=== PATIENT | male | born 1935 | race Caucasian/White ===

== ENCOUNTER 2019-05-29 20:21 | Observation (INO) | payer MEDICARE ==
[2019-05-29 22:10] LABS: Troponin I Less than 0.010 ng/mL (< 0.028)
[2019-05-29] MEDS ORDERED: Acetaminophen 325 MG TAB PO PRN (23:14)
[2019-05-29] MEDS ORDERED: Acetaminophen 650 MG Suppository PR PRN (23:14)
[2019-05-29] MEDS ORDERED: Ondansetron PF 4 MG/2 ML Vial IVP PRN (23:14)
[2019-05-29] MEDS ORDERED: Ondansetron ODT 4 MG TAB PO PRN (23:14)
[2019-05-29 23:22] VITALS: BMI 30.4
[2019-05-29] MEDS ORDERED: Sodium Chloride 0.9% 1,000 ML IV SCH (23:59)
[2019-05-30] MEDS ORDERED: Atorvastatin Calcium 40 MG TAB PO SCH ×2 (00:15→21:00)
[2019-05-30] MEDS ORDERED: Tamsulosin HCl 0.4 MG CAP PO SCH ×2 (00:15→21:00)
[2019-05-30 01:01] LABS: Troponin I Less than 0.010 ng/mL (< 0.028)
--- NOTE | 2019-05-30 02:03 | HP ---
PRIMARY CARE DOCTOR: Dr. Marcos Mcmahon. CODE STATUS: Full code. TIME OF EVALUATION: 10:35 p.m. CHIEF COMPLAINT: Chest pain. HISTORY OF PRESENT ILLNESS: An 83-year-old male patient who was transferred from [place], came to the hospital after having chest pain that was in the right side of the chest, radiated to the neck and shoulder. The pain improved with treatment given here, lasted for a couple of hours. It seems that it was related to exertion and was improving with rest. The patient follows with Dr. Guerrero for problems in the "heart" but not clear exactly why. No recent stress test. Last consult with Dr. Guerrero was in October and no further workup was done at that point. He goes to follow up in a year because everything was good. Symptoms were reported as mild. REVIEW OF SYSTEMS: CONSTITUTIONAL: No fever, chills, or generalized weakness. RESPIRATORY: No cough, sputum production, or shortness of breath. CARDIOVASCULAR: The patient has chest pain. No palpitation. GASTROINTESTINAL: No nausea, vomiting, diarrhea, or abdominal pain. MANAGER RESEARCH DEVELOPMENT: No dizziness, headache, or feeling lightheaded. GENITOURINARY: No burning urination. EXTREMITIES: No leg swelling. All other systems were reviewed and negative except for the findings mentioned above. PAST MEDICAL HISTORY: The patient has a history of being born with only one kidney, coronary artery disease, hypothyroidism, BPH, hyperlipidemia, hypertension, abdominal aortic aneurysm in 2013. PAST SURGICAL HISTORY: AAA repair, bilateral cataract, bilateral eyelid lift. Surgical history of hernia repair. Surgical history of orthopedic surgery, left rotator cuff surgery. PSYCHIATRIC HISTORY: No previous psych history. No history of suicidal ideations. SOCIAL HISTORY: The patient drinks socially every week. The patient is a former tobacco user. Smokes cigarettes. The patient quit smoking more than 10 years ago. Lives at home with family. FAMILY HISTORY: Reviewed. Noncontributory for current presentation. KNOWN ALLERGIES: No known drug allergies. REPORTED MEDICATIONS: 1. Levothyroxine. 2. Avodart. 3. Tamsulosin. 4. Benicar. 5. Isosorbide. 6. Atorvastatin. 7. Vitamin D3. 8. Ferrous gluconate. 9. B complex. PHYSICAL EXAMINATION: VITAL SIGNS: On presentation, blood pressure 130/68, heart rate 96, respiratory rate 20, temperature 98.1. Pain was 0/10. Oxygen saturation 94% on room air. GENERAL: The patient is alert, oriented, in no acute distress. HEENT: Eyes, normal conjunctivae. Moist oral mucosa. Anicteric. No JVD. RESPIRATORY: Bilateral air entry. No rales. No wheezes. Symmetric expansion. CARDIAC: Normal rate, regular rhythm. No murmurs. No gallop. No edema. ABDOMEN: Soft. Normal bowel sounds. MUSCULOSKELETAL: Baseline range of motion and strength. SKIN: Warm, intact. No pallor. No rash. No redness. Capillary refill seems to be intact. NEUROLOGICAL: No evidence of any new focal weakness. Cranial nerves seem to be intact. PSYCH: The patient is in good mood. No anxiety. Optimal judgment. DIAGNOSTIC STUDIES: EKG was reviewed. The patient has sinus rhythm with first-degree AV block, RBBB, ventricular rate 82, PT 276, QRS 124, QT corrected 427. LABORATORY DATA: Reviewed. The patient has white count 10.2, hemoglobin 15.3, MCV 92.9, platelet count 217. Coagulation, D-dimer 1.5. Chemistry; sodium 137, potassium 4.3, chloride 103, carbon dioxide 22, anion gap 16, BUN 28, GFR 46 with creatinine 1.47, the previous creatinine was 1.0, glucose 100, uric acid 6.1, calcium 11.1, total bilirubin 0.9, AST 26, ALT 31, alkaline phosphatase 57. Troponin less than 0.010. Beta-natriuretic peptide 12.8. Serum total protein 7.3, albumin 4.5, globulin 2.8, albumin globulin ratio is 1.6. ASSESSMENT AND PLAN: The patient will be placed in the hospital with following medical problems: 1. Chest pain, rule out acute coronary syndrome. The patient has chest pain earlier today that was severe on presentation. The patient follows with Dr. Guerrero and no recent stress test has been done. We will place the patient in observation, do troponins, order a stress test in the morning. If positive, we will call Dr. Guerrero for evaluation. 2. Hypothyroidism. Continue hormone replacement. 3. BPH, reconcile home medications. 4. Hyperlipidemia. Low-cholesterol diet is advised. Reconcile home medications. 5. Controlled hypertension, reconcile home medications. Adjust as needed. 6. Deep vein thrombosis prophylaxis. Job ID: [id number]
[2019-05-30 07:13] LABS: #Lymphocytes 0.6 thou/uL (1.20-3.40); #Monocytes 0.3 thou/uL (0.11-0.59); #Neutrophils 5.2 thou/uL (1.40-6.50); %Basophils 0.3 % (0.0-1.0); %Eosinophils 0.6 % (0.0-10.0); %Lymphocytes 9.7 % (21.0-51.0); %Monocytes 4.9 % (0.0-10.0); %Neutrophils 84.5 % (42.0-75.0); Hemoglobin 13.6 g/dL (14.0-18.0); Mean Corpuscular HGB CONC 32.3 g/dL (32.0-36.0); Mean Corpuscular Hemoglobin 31.7 pg (27.0-31.0); Mean Platelet Volume 7.1 fL (7.4-10.4); Platelet Count 179 thou/uL (130-400); RBC Distribution Width 12.8 % (11.5-14.5); Red Blood Cell (RBC) Count 4.29 mill/uL (4.70-6.10); White Blood Cell (WBC) Count 6.2 thou/uL (4.8-10.8)
[2019-05-30 07:31] LABS: Anion Gap 10 mmol/L (10-20); BUN (Urea Nitrogen) 22 mg/dL (8.4-25.7); Calc. Creatinine Clearance 82 mL/min (70-130); Calcium 9.6 mg/dL (7.8-10.44); Carbon Dioxide 23 mmol/L (23-31); Chloride 108 mmol/L (98-107); Estimated GFR-MDRD 77; Glucose 91 mg/dL (83-110); Potassium 4.3 mmol/L (3.5-5.1); Sodium 137 mmol/L (136-145)
[2019-05-30] MEDS ORDERED: Dutasteride 0.5 MG CAP PO SCH (09:00)
[2019-05-30] MEDS ORDERED: Levothyroxine Sodium 75 MCG TAB PO SCH (09:00)
[2019-05-30 09:07] VITALS: TEMP 97.6
[2019-05-30 13:25] VITALS: BP 105/68
--- NOTE | 2019-05-30 14:01 | NM ---
NM Cardiac Stress W EF WF HISTORY: Chest pain. COMPARISON: None. FINDINGS: Examination is performed using 30.6 mCi 90 9M technetium sestamibi on the stress and 10.5 m Ci on the resting images. This shows a tiny apical defect which is fixed most compatible with a tiny area of scar. Wall motion: There is symmetric contractility of the ventricle. Left ventricular ejection fraction: The calculated left ventricular ejection fraction was 74 IMPRESSION: No evidence of ischemia.
== END 2019-05-30 15:23 | disposition home or self-care (01) ==
LOC: ERS 20:21 → 2SW 21:26
PROVIDERS: ADMIT Hospitalist; ATTEND Hospitalist
DX: R07.9 Chest pain, unspecified (principal); E03.9 Hypothyroidism, unspecified; N40.0 Benign prostatic hyperplasia without lower urinary tract symptoms; E78.5 Hyperlipidemia, unspecified; I10 Essential (primary) hypertension; I25.10 Atherosclerotic heart disease of native coronary artery without angina pectoris; Q60.0 Renal agenesis, unilateral; I44.0 Atrioventricular block, first degree; Z87.891 Personal history of nicotine dependence; Z79.82 Long term (current) use of aspirin; Z79.899 Other long term (current) drug therapy
CPT/HCPCS: 78452; 80048; 84484 ×2; 85025; 93005; 93017; 96360; 96361; 99285; A9500; G0378 ×3; 36415

== ENCOUNTER 2020-09-23 13:25 | Inpatient (IN) | payer MEDICARE ==
[2020-09-23 15:56] LABS: Troponin I Less than 0.010 ng/mL (< 0.028)
--- NOTE | 2020-09-23 17:00 | HP ---
PRIMARY CARE PHYSICIAN: Moriah. CHIEF COMPLAINT: Chest tightness and dyspnea on exertion. HISTORY OF PRESENT ILLNESS: This is an 85-year-old white male with a history of previous angina and negative stress tests, followed by Dr. Guerrero. He woke up this morning and found himself to be short of breath with central chest tightness. The patient reports that he got very dyspneic on exertion when he walked to the bathroom. This did not improve over the course of the morning and so he went into the emergency room in [place]. There, he was found to have normal vital signs, but an elevated D-dimer. He had a CT angio of the chest, which showed no evidence of pulmonary embolism, just some mild early emphysematous changes. The patient did get a little bit of flushing and diaphoresis after the CT scan, but that quickly resolved. Also, he is about to transfer here, his eyes became bilaterally bloodshot without any itching, burning, or vision changes. He was then transferred here for further evaluation. REVIEW OF SYSTEMS: CONSTITUTIONAL: No fevers. No chills. EYES: No double vision or blurred vision. Redness as per HPI. ENT: No drainage or sore throat. He does have some chronic sinus congestion from allergies. CARDIOVASCULAR: No true chest pain just the central chest pressure. No palpitations or racing heart. PULMONARY: No coughing or wheezing. The shortness of breath and dyspnea on exertion as per HPI. GASTROINTESTINAL: No abdominal pain. No nausea or vomiting. No diarrhea or constipation. GENITOURINARY: No dysuria or hematuria. MUSCULOSKELETAL: Some chronic arthritis pains, but no new musculoskeletal complaints. SKIN: No rashes or other lesions noted. NEUROLOGIC: No numbness, tingling, or focal weakness. PAST MEDICAL HISTORY: 1. Hypertension. 2. Abdominal aortic aneurysm, repaired. 3. Hyperlipidemia. 4. Benign prostatic hyperplasia. 5. Hypothyroidism. 6. Intermittent angina without any known coronary artery disease. 7. Congenital single kidney. PAST SURGICAL HISTORY: 1. Abdominal aortic aneurysm repair [place] [address] Becerra. 2. Bilateral cataract removal. 3. Bilateral eyelid lift surgery. 4. Hernia repair. 5. Left rotator cuff surgery. SOCIAL HISTORY: The patient is a former smoker, quit more than 10 years ago. Drinks socially every week. No illicit drug use. He is and lives at home with his , who would be his medical decision maker, her name is Marily Vivas. He is a full code. FAMILY HISTORY: He has a brother, who has had prostate cancer and a stroke. ALLERGIES: NO KNOWN DRUG ALLERGIES. CURRENT MEDICATIONS: 1. Levothyroxine 75 mcg daily. 2. Tamsulosin 0.4 mg daily. 3. Isosorbide mononitrate 30 mg daily. 4. Atorvastatin 80 mg daily. 5. Vitamin D3 of 1000 units daily. 6. Vitamin B complex one tablet daily. 7. Aspirin 81 mg daily. PHYSICAL EXAMINATION: VITAL SIGNS: Blood pressure 167/98, pulse 59, respirations 15, temperature 98.1, and O2 saturation 96% on room air. GENERAL: This is a well-developed obese white male, in no acute distress. HEENT: Pupils are equal, round, and reactive to light. He does have bilateral conjunctival redness without any evidence of drainage or swelling. Oropharynx clear without lesions, erythema, or exudate. NECK: Supple. No lymphadenopathy. No thyroid nodules or enlargement. No JVD. HEART: Regular rate and rhythm. No murmurs, rubs, or gallops. LUNGS: Clear to auscultation bilaterally. No wheezes, crackles, or rhonchi. ABDOMEN: Soft and nontender to palpation. Normoactive bowel sounds. No hepatosplenomegaly or other masses. EXTREMITIES: No clubbing, cyanosis, or edema. SKIN: No rashes or lesions noted. NEUROLOGIC: The patient moves all extremities equally. No facial droop. PSYCHIATRIC: Alert and oriented x3. Normal mood and affect. LABORATORY DATA: CBC grossly within normal limits. Coagulation profile with an elevated D-dimer. The rest is normal. Complete metabolic panel is notable for carbon dioxide of 19 and glucose of 111, the rest was normal. Brain natriuretic peptide was negative. Troponin was negative x2 thus far. Lactic acid was negative. I did review the chest x-ray done in the emergency room along with the radiologist's report, does show normal cardiac silhouette and clear lung rae. No acute cardiopulmonary process. CTA of the chest done in [place] [facility] shows no central or segmental pulmonary embolism. There are scattered emphysema changes. EKG done in the emergency room shows normal sinus rhythm at 72 beats per minute with a first-degree AV block and a complete right bundle branch block that appears similar to an EKG done from last year. ASSESSMENT AND PLAN: 1. New onset chest tightness with dyspnea on exertion. The patient does have a history of angina with negative stress test in the past. Does not have one in the last year. We will go ahead and set him up for stress test in the morning. We will continue him on aspirin and statin for now and we will give nitroglycerin should he have any worsening of symptoms. Should he get more significantly short of breath at rest, then we will try an inhaler as well to see if perhaps this is coming from his lungs. He does have some emphysema changes on his CT. 2. Bilateral conjunctivitis. Red eyes but asymptomatic. Happened in the ER. Possibly environmental but patient may be developing a viral infection. Covid-19 test is pending. 3. Hypertension. Resume the patient's home medications and p.r.n. blood pressure medicines then. 4. Gastrointestinal prophylaxis, put the patient on Pepcid twice a day. 5. Deep venous thrombosis prophylaxis, put the patient on Lovenox while he is in the hospital. 6. Code status, the patient is a full code. Should he be incapacitated, his would be his medical decision maker. Job ID: [id number] [facility]
[2020-09-23 18:05] LABS: Troponin I Less than 0.010 ng/mL (< 0.028)
[2020-09-23 18:14] VITALS: BMI 30.2
[2020-09-23] MEDS ORDERED: Acetaminophen 650 MG Suppository PR PRN (18:46)
[2020-09-23] MEDS ORDERED: Nitroglycerin 0.4 MG TAB (25 Tab Bottle) SL PRN (18:46)
[2020-09-23] MEDS ORDERED: Ondansetron PF 4 MG/2 ML Vial IVP PRN (18:46)
[2020-09-23] MEDS ORDERED: Guaifenesin DM 100-10/5 ML UDCUP PO PRN (18:46)
[2020-09-23] MEDS ORDERED: Ondansetron ODT 4 MG TAB PO PRN (18:46)
[2020-09-23] MEDS ORDERED: Senokot S 8.6-50 MG TAB PO PRN (18:46)
[2020-09-23 20:13] LABS: SARS-CoV-2 NAA Rapid Test Not Detected (NotDetected)
[2020-09-23] MEDS: Acetaminophen 325 MG TAB PO PRN (20:16)
[2020-09-23] MEDS: Famotidine 20 MG TAB PO SCH (20:17)
[2020-09-23] MEDS: Tamsulosin HCl 0.4 MG CAP PO SCH (20:17)
[2020-09-23] MEDS: Atorvastatin Calcium 40 MG TAB PO SCH (20:17)
[2020-09-23] MEDS: Cholecalciferol 1,000 UNITS (25 MCG) TAB PO SCH (20:17)
[2020-09-23] MEDS: Aspirin 81 mg Enteric Coated Tablet PO SCH (20:17)
[2020-09-23 21:10] LABS: Troponin I Less than 0.010 ng/mL (< 0.028)
[2020-09-24 04:26] LABS: #Lymphocytes 2.1 thou/uL (1.20-3.40); #Monocytes 0.5 thou/uL (0.11-0.59); #Neutrophils 2.8 thou/uL (1.40-6.50); %Basophils 0.8 % (0.0-1.0); %Eosinophils 0.8 % (0.0-10.0); %Lymphocytes 37.8 % (21.0-51.0); %Monocytes 9.7 % (0.0-10.0); Mean Corpuscular HGB CONC 33.9 g/dL (32.0-36.0); Mean Corpuscular Hemoglobin 32.4 pg (27.0-31.0); Mean Corpuscular Volume 95.8 fL (78.0-98.0); Mean Platelet Volume 7.4 fL (7.4-10.4); Platelet Count 201 thou/uL (130-400); RBC Distribution Width 12.5 % (11.5-14.5); Red Blood Cell (RBC) Count 4.32 mill/uL (4.70-6.10); White Blood Cell (WBC) Count 5.4 thou/uL (4.8-10.8)
[2020-09-24 04:49] LABS: Anion Gap 12 mmol/L (10-20); BUN (Urea Nitrogen) 20 mg/dL (8.4-25.7); Calc. Creatinine Clearance 67 mL/min (70-130); Calcium 9.9 mg/dL (7.8-10.44); Carbon Dioxide 22 mmol/L (23-31); Cardiac Risk 2.7 (Less than 4.5); Chloride 109 mmol/L (98-107); Cholesterol 123 mg/dl (< 200 Desired); Estimated GFR-MDRD 67; Glucose 124 mg/dL (83-110); HDL Cholesterol 45 mg/dL (>60 Neg Risk); LDL Cholesterol, Calculated 58 mg/dL; Potassium 3.7 mmol/L (3.5-5.1); Sodium 139 mmol/L (136-145); Triglycerides 102 mg/dL (Less than 150)
[2020-09-24] MEDS: Levothyroxine Sodium 75 MCG TAB PO SCH (05:18)
[2020-09-24] MEDS: Acetaminophen 325 MG TAB PO PRN ×2 (05:22→11:54)
[2020-09-24] MEDS: Famotidine 20 MG TAB PO SCH ×2 (11:48→22:32)
[2020-09-24] MEDS: Stress 600 With Zinc 1 TAB PO SCH (11:48)
[2020-09-24] MEDS: Dutasteride 0.5 MG CAP PO SCH (11:48)
[2020-09-24] MEDS: Enoxaparin Sodium 40 MG/0.4 ML SYRINGE SC SCH (11:49)
--- NOTE | 2020-09-24 11:57 | NM ---
NUCLEAR MEDICINE CARDIAC STRESS AND EF WITH WALL MOTION: HISTORY: Shortness of breath. Chest tightness and dyspnea on exertion. COMPARISON: 05/30/2019 TECHNIQUE: Patient was administered 9 mCi of technetium 99 sestamibi for rest imaging and 27 mCi of t echnetium 99 M sestamibi for stress imaging. Cardiac gating is performed FINDINGS: Homogeneous distribution of the radiotracer in the left ventricle on the attenuated non attenuated st ress images. TID is 1.07 End-diastolic volume is 121 mL End-systolic volume is 44 mL Cardiac gating: Normal wall motion and thickening. 64% ejection fraction. IMPRESSION: 1. No reversibility or fixed defect 2. 64% ejection fraction. Transcribed Date/Time: 09/24/2020 1:35 PM
[2020-09-24] MEDS ORDERED: Regadenoson 0.4 MG/5 ML SYRINGE ONE (14:12)
--- NOTE | 2020-09-24 15:59 | PDOC.HOSPP ---
- Subjective Encounter Date: 09/24/20 Encounter Time: 03:20 Subjective: Patient came back from stress test he took a nap. His stress test is negative. When I ready to discharge him he has lots and lots of questions. I spent over 20 minutes in his room. Bilateral conjunctivitis seems to be resolving. It is not overtly erythematic. Patient has no ocular symptoms including pain discharge or vision acuity. He is not aware of any allergic reaction in the past. He also wants to know why he got shortness of breath this morning he wants to know why his blood pressure went up usually his blood pressure is systolic 120 range. Few readings before this morning is systolic is in the 150 range he is satting 94% in the room air. Covid test negative. - Objective Vital Signs & Weight: Vital Signs (12 hours) Temp Pulse Resp BP Pulse Ox 09/24/20 11:45 97.2 F L 58 L 18 167/83 H 94 L 09/24/20 08:00 97.8 F 59 L 17 142/88 H 92 L Weight Weight 202 lb 12.8 oz I&O: 09/23/20 09/24/20 09/25/20 06:59 06:59 06:59 Intake Total 400 Output Total 1250 Balance -850 Result Diagrams: 09/24/20 04:10 09/24/20 04:10 Hospitalist ROS - Medication Medications: Active Medications Generic Name Dose Route Start Last Admin Trade Name Freq PRN Reason Stop Dose Admin Acetaminophen 650 mg 09/23/20 18:46 09/24/20 11:54 Acetaminophen 325 Mg Tab PO 650 mg Q4H PRN Administration Headache/Fever/Mild Pain (1-3) Aspirin 81 mg 09/23/20 21:00 09/23/20 20:17 Aspirin 81 Mg Enteric Coated Tablet PO 81 mg HS RAMIRO Administration Atorvastatin Calcium 80 mg 09/23/20 21:00 09/23/20 20:17 Atorvastatin Calcium 40 Mg Tab PO 80 mg HS RAMIRO Administration Cholecalciferol 2,000 units 09/23/20 21:00 09/23/20 20:17 Cholecalciferol 1,000 Units (25 Mcg) Tab PO 2,000 units HS RAMIRO Administration Dutasteride 0.5 mg 09/24/20 09:00 09/24/20 11:48 Dutasteride 0.5 Mg Cap PO 0.5 mg DAILY RAMIRO Administration Enoxaparin Sodium 40 mg 09/24/20 09:00 09/24/20 11:49 Enoxaparin Sodium 40 Mg/0.4 Ml Syringe SC 40 mg 0900 RAMIRO Administration Famotidine 20 mg 09/23/20 21:00 09/24/20 11:48 Famotidine 20 Mg Tab PO 20 mg BID RAMIRO Administration Guaifenesin/Dextromethorphan 15 ml 09/23/20 18:46 09/23/20 20:15 Guaifenesin Dm 100-10/5 Ml Udcup PO 15 ml Q4H PRN Administration Cough Isosorbide Mononitrate 30 mg 09/24/20 09:00 09/24/20 11:48 Isosorbide Mononitrate Er 30 Mg Tab PO 30 mg DAILY RAMIRO Administration Levothyroxine Sodium 75 mcg 09/24/20 06:00 09/24/20 05:18 Levothyroxine Sodium 75 Mcg Tab PO 75 mcg 0600 RAMIRO Administration Multivitamins/Zinc 1 tab 09/24/20 09:00 09/24/20 11:48 Stress 600 With Zinc 1 Tab PO 1 tab DAILY RAMIRO Administration Tamsulosin HCl 0.4 mg 09/23/20 21:00 09/23/20 20:17 Tamsulosin Hcl 0.4 Mg Cap PO 0.4 mg HS RAMIRO Administration - Exam General Appearance: NAD, awake alert Eye: PERRL ENT: normocephalic atraumatic Neck: supple Heart: RRR Respiratory: CTAB, normal chest expansion Gastrointestinal: soft, normal bowel sounds Neurological: no focal deficits Psychiatric: A&O x 3 Hosp A/P - Plan Chest pain noncardiac -Acute coronary syndrome ruled out with serial troponins Stress test negative no reversibility or fixed defect 64% in the ejection fraction Echo pending -He followed with Dr. Guerrero in the past, per pt. Shortness of breath prior to admission Wide differentials -He appears well clinically. -Satting in the 94% in the room air. -We will get chest x-ray and a flu test -Covid negative - Bilateral conjunctivitis -Very likely allergic reaction a Patient has no ocular symptoms including pain discharge or vision acuity.
[2020-09-24] MEDS ORDERED: Metoprolol Tartrate 5 MG/5 ML VIAL IVP PRN (16:16)
--- NOTE | 2020-09-24 17:26 | RAD ---
EXAM: Single view of the chest HISTORY: Hypoxia on room air COMPARISON: 09/23/2020 FINDINGS: Single view of the chest shows a normal sized cardiomediastinal silhouette. There are quest ionable multifocal peripheral airspace opacities in the right lung. Degenerative changes are seen in the spine. IMPRESSION: Possible early right-sided pulmonary infiltrates.
[2020-09-24] MEDS: Atorvastatin Calcium 40 MG TAB PO SCH (22:31)
[2020-09-24] MEDS: Cholecalciferol 1,000 UNITS (25 MCG) TAB PO SCH (22:32)
[2020-09-24] MEDS: Aspirin 81 mg Enteric Coated Tablet PO SCH (22:32)
[2020-09-24] MEDS: Tamsulosin HCl 0.4 MG CAP PO SCH (22:33)
[2020-09-25] MEDS: Levothyroxine Sodium 75 MCG TAB PO SCH (06:10)
[2020-09-25] MEDS: Famotidine 20 MG TAB PO SCH ×2 (07:50→21:52)
[2020-09-25] MEDS: Stress 600 With Zinc 1 TAB PO SCH (07:50)
[2020-09-25] MEDS: Dutasteride 0.5 MG CAP PO SCH (07:50)
[2020-09-25] MEDS: Enoxaparin Sodium 40 MG/0.4 ML SYRINGE SC SCH (07:51)
--- NOTE | 2020-09-25 09:50 | CON ---
DATE OF CONSULTATION: HISTORY OF PRESENT ILLNESS: The patient is an 85-year-old gentleman who presented with dyspnea and palpitations. The patient has a previous history of an aortic aneurysm. He has undergone resection of this aneurysm in 2012. The patient has subsequently done well. He reports he done well until a year ago. He presented with substernal chest discomfort. He underwent a stress test at that time, which revealed no evidence of ischemia. With possible small apical infarct, the patient was placed on medical therapy. He is doing well until the day of admission when he became acutely short of breath. He states he had some mild chest discomfort. He also reported having palpitations. The patient denies having any further dyspnea or chest discomfort. The patient denies having any fevers or chills. PAST MEDICAL HISTORY: 1. Coronary artery disease. 2. Hypertension. 3. Dyslipidemia. 4. History of aortic aneurysm resection. 5. History of a single kidney. PAST SURGICAL HISTORY: 1. Eyelid surgery. 2. Cataract surgery. 3. Aneurysm resection. 4. Hernia surgery. 5. Rotator cuff surgery. SOCIAL HISTORY: Former smoker. ALLERGIES: NO KNOWN DRUG ALLERGIES. FAMILY HISTORY: No strong family history of coronary artery disease. MEDICATIONS: 1. Synthroid 75 mcg daily. 2. Imdur 30 q.a.m. 3. Flomax 0.4 daily. 4. Lipitor 80 nightly. 5. Aspirin 81 daily. REVIEW OF SYSTEMS: Ten-point system otherwise unremarkable. No history of easy bruising or bleeding. PHYSICAL EXAMINATION: GENERAL: An obese gentleman, in no acute distress. VITAL SIGNS: Blood pressure 152/88. NECK: No jugular vein distention. LUNGS: Clear to auscultation. HEART: Regular rate and rhythm. Normal S1 and S2. ABDOMEN: Distended. EXTREMITIES: No edema. VASCULAR: Radial pulses are 2+. LABORATORY DATA: Sodium 139, potassium 3.7, chloride 109, bicarbonate 22, BUN 20, creatinine 1.06, and glucose 124. Troponin 0.01. White blood cell count is 5.4, hemoglobin 14.0, hematocrit 41.4, and platelets are 201. EKG revealed normal sinus rhythm with a right bundle-branch block, Q-wave suggestive of previous inferior infarct. Lexiscan stress test revealed normal left ventricular ejection fraction of 64%. No evidence of ischemia or infarct. Echocardiogram, normal left ventricular ejection fraction 50% to 55% with diastolic dysfunction. IMPRESSION: 1. Dyspnea of unclear etiology. 2. Hypertension. 3. History of aortic aneurysm repair. 4. Dyslipidemia. 5. History of a single kidney. This gentleman presents with shortness of breath and mild chest discomfort. The patient underwent a stress test which revealed no evidence of ischemia. I am still concerned that this may be an anginal equivalent. He did, however, do well on a stress test a year ago. I discussed the option of proceeding with a cardiac catheterization for definitive diagnosis. The patient does not want to undergo an invasive evaluation. I will increase the dose of Imdur. We will perform outpatient exercise stress testing. We will follow this patient with you if he remains in the hospital. Job ID: [id number] [facility]
[2020-09-25] MEDS: cefTRIAXone\\ROCEPHIN 1 GM in Sodium Chloride 0.9% 100 ML IVPB SCH (10:59)
--- NOTE | 2020-09-25 12:12 | PDOC.HOSPP ---
- Subjective Encounter Date: 09/25/20 Subjective: Patient seen and examined. No new complaints. No overnight events. All his questions were answered and he is happy with that. No chest pain and shortness of breath. His blood pressure is still on the high end. He is afebrile. He is satting around 94% in the room air. Chest x-ray showed right lower lobe infiltrate. He is flu test is negative. - Objective Vital Signs & Weight: Vital Signs (12 hours) Temp Pulse Resp BP Pulse Ox 09/25/20 08:00 97.5 F L 55 L 17 155/94 H 94 L 09/25/20 03:55 98.6 F 69 15 171/74 H 95 09/25/20 00:40 59 L 16 148/85 H 95 09/25/20 00:26 96 Weight Weight 214 lb I&O: 09/24/20 09/25/20 09/26/20 06:59 06:59 06:59 Intake Total 400 860 Output Total 1250 Balance -850 860 Result Diagrams: 09/24/20 04:10 09/24/20 04:10 Hospitalist ROS - Review of Systems Respiratory: reports: shortness of breath, SOB with excertion. denies: cough, dry, hemoptysis, pleuritic pain, sputum, wheezing Cardiovascular: denies: chest pain, palpitations, orthopnea, paroxysmal noc. dyspnea, edema, light headedness Gastrointestinal: denies: nausea, vomiting, abdominal pain, diarrhea, constipation - Medication Medications: Active Medications Generic Name Dose Route Start Last Admin Trade Name Freq PRN Reason Stop Dose Admin Acetaminophen 650 mg 09/23/20 18:46 09/24/20 11:54 Acetaminophen 325 Mg Tab PO 650 mg Q4H PRN Administration Headache/Fever/Mild Pain (1-3) Aspirin 81 mg 09/23/20 21:00 09/24/20 22:32 Aspirin 81 Mg Enteric Coated Tablet PO 81 mg HS RAMIRO Administration Atorvastatin Calcium 80 mg 09/23/20 21:00 09/24/20 22:31 Atorvastatin Calcium 40 Mg Tab PO 80 mg HS RAMIRO Administration Cholecalciferol 2,000 units 09/23/20 21:00 09/24/20 22:32 Cholecalciferol 1,000 Units (25 Mcg) Tab PO 2,000 units HS RAMIRO Administration Dutasteride 0.5 mg 09/24/20 09:00 09/25/20 07:50 Dutasteride 0.5 Mg Cap PO 0.5 mg DAILY RAMIRO Administration Enoxaparin Sodium 40 mg 09/24/20 09:00 09/25/20 07:51 Enoxaparin Sodium 40 Mg/0.4 Ml Syringe SC 40 mg 0900 RAMIRO Administration Famotidine 20 mg 09/23/20 21:00 09/25/20 07:50 Famotidine 20 Mg Tab PO 20 mg BID RAMIRO Administration Guaifenesin/Dextromethorphan 15 ml 09/23/20 18:46 09/23/20 20:15 Guaifenesin Dm 100-10/5 Ml Udcup PO 15 ml Q4H PRN Administration Cough Ceftriaxone Sodium 1 gm/ 100 mls @ 200 mls/hr 09/25/20 10:00 09/25/20 10:59 Sodium Chloride IVPB 100 mls 1000 RAMIRO Administration Levothyroxine Sodium 75 mcg 09/24/20 06:00 09/25/20 06:10 Levothyroxine Sodium 75 Mcg Tab PO 75 mcg 0600 RAMIRO Administration Metoprolol Tartrate 5 mg 09/24/20 16:16 09/25/20 04:14 Metoprolol Tartrate 5 Mg/5 Ml Vial IVP 09/27/20 16:17 5 mg Q4H PRN Administration Blood Pressure Multivitamins/Zinc 1 tab 09/24/20 09:00 09/25/20 07:50 Stress 600 With Zinc 1 Tab PO 1 tab DAILY RAMIRO Administration Tamsulosin HCl 0.4 mg 09/23/20 21:00 09/24/20 22:33 Tamsulosin Hcl 0.4 Mg Cap PO 0.4 mg HS RAMIRO Administration - Exam ENT: normocephalic atraumatic, no oropharyngeal lesions, moist mucosa Neck: supple, symmetric, no JVD, no thyromegaly, no lymphadenopathy, no carotid bruit Heart: RRR, no murmur, no gallops, no rubs, normal peripheral pulses Respiratory: CTAB, no wheezes, no rales, no ronchi, normal chest expansion, no tachypnea, normal percussion Gastrointestinal: soft, non-tender, non-distended, normal bowel sounds, no palpable masses, no hepatomegaly, no splenomegaly, no bruit, no guarding, no rigidity Hosp A/P - Plan Chest pain noncardiac -Acute coronary syndrome ruled out with serial troponins Stress test negative no reversibility or fixed defect 64% in the ejection fraction Echo showed estimated LVEF 50-55% -He followed with Dr. Guerrero in the past, per pt. Shortness of breath prior to admission Wide differentials -He appears well clinically. -Satting in the 94% in the room air. -We will get chest x-ray and a flu test -Covid negative Bilateral conjunctivitis -Very likely allergic reaction a Patient has no ocular symptoms including pain discharge or vision acuity. Shortness of breath prior to admission He appears well clinically. Evolving right lower lobe pneumonia Community-acquired pneumonia Aspiration pneumonia cannot be ruled out -Satting in the 94% in the room air. -flu test is negative -Covid negative -CXR showed early right sided pulmonary infiltrates -started on ceftriaxone IV today -will monitor oxygen saturation to assess pulmonary status HTN -today was 153/94 -was given an increased dose of isosorbide dinitrate Norvasc 5 mg daily added. -goal BP is <140/90 If he is afebrile and no elevated white count as he has evolving pneumonia we are monitoring the CBC tomorrow and his systolic blood pressure less than 140 plan for discharge him tomorrow. Care plan discussed with the student and the progress note edited according to today's plan
[2020-09-25] MEDS: Acetaminophen 325 MG TAB PO PRN (15:01)
[2020-09-25] MEDS ORDERED: Amlodipine 5 MG TAB PO SCH (21:00)
[2020-09-25] MEDS: Aspirin 81 mg Enteric Coated Tablet PO SCH (21:52)
[2020-09-25] MEDS: Cholecalciferol 1,000 UNITS (25 MCG) TAB PO SCH (21:52)
[2020-09-25] MEDS: Tamsulosin HCl 0.4 MG CAP PO SCH (21:52)
[2020-09-25] MEDS: Atorvastatin Calcium 40 MG TAB PO SCH (21:52)
[2020-09-26] MEDS: Acetaminophen 325 MG TAB PO PRN ×2 (02:29→08:25)
[2020-09-26 04:53] LABS: #Lymphocytes 2.1 thou/uL (1.20-3.40); #Monocytes 0.7 thou/uL (0.11-0.59); #Neutrophils 2.8 thou/uL (1.40-6.50); %Basophils 0.9 % (0.0-1.0); %Eosinophils 0.6 % (0.0-10.0); %Lymphocytes 37.6 % (21.0-51.0); %Monocytes 11.8 % (0.0-10.0); %Neutrophils 49.2 % (42.0-75.0); Hemoglobin 13.3 g/dL (14.0-18.0); Mean Corpuscular HGB CONC 33.9 g/dL (32.0-36.0); Mean Corpuscular Hemoglobin 32.6 pg (27.0-31.0); Mean Corpuscular Volume 96.3 fL (78.0-98.0); Mean Platelet Volume 7.3 fL (7.4-10.4); Platelet Count 204 thou/uL (130-400); RBC Distribution Width 12.5 % (11.5-14.5); Red Blood Cell (RBC) Count 4.08 mill/uL (4.70-6.10); White Blood Cell (WBC) Count 5.6 thou/uL (4.8-10.8)
[2020-09-26] MEDS: Levothyroxine Sodium 75 MCG TAB PO SCH (05:21)
[2020-09-26] MEDS: Dutasteride 0.5 MG CAP PO SCH (08:21)
[2020-09-26] MEDS: Famotidine 20 MG TAB PO SCH (08:21)
[2020-09-26] MEDS: Enoxaparin Sodium 40 MG/0.4 ML SYRINGE SC SCH (08:22)
[2020-09-26] MEDS: Stress 600 With Zinc 1 TAB PO SCH (08:22)
[2020-09-26] MEDS: cefTRIAXone\\ROCEPHIN 1 GM in Sodium Chloride 0.9% 100 ML IVPB SCH (08:23)
[2020-09-26] MEDS ORDERED: Amlodipine 5 MG TAB PO SCH ×2 (09:30→21:00)
[2020-09-26 11:20] VITALS: BP 147/85; TEMP 97.5
--- NOTE | 2020-09-26 13:20 | PDOC.DS.DS ---
Provider - Provider Date of Admission: 09/25/20 14:20 Admitting Provider: Abimael White MD Primary Care Physician: Osmani Mendoza DO Course - Hospital Course Hospital Course: 85-year-old male - healthy looking presented with Chest pain noncardiac -Acute coronary syndrome ruled out with serial troponins Stress test negative no reversibility or fixed defect 64% in the ejection fraction Echo showed estimated LVEF 50-55% -He followed with Dr. Guerrero in the past. -Nuclear stress test was negative no ischemia. However patient is still concerned about his tachycardia and shortness of breath. Shortness of breath prior to admission--related to the community-acquired pneumonia Wide differentials -He appears well clinically. -Satting in the 94% in the room air. -We will get chest x-ray and a flu test -Covid negative Bilateral conjunctivitis -Very likely allergic reaction a Patient has no ocular symptoms including pain discharge or vision acuity. Shortness of breath prior to admission He appears well clinically. Evolving right lower lobe pneumonia Community-acquired pneumonia Aspiration pneumonia cannot be ruled out -Satting in the 94% in the room air. --Even though his sats seems to be on the low side he clinically looks good no shortness of breath dyspnea or productive cough. So he should be able to follow with the primary care and if needed repeat chest x-ray in 6 weeks. -flu test is negative -Covid negative -CXR showed early right sided pulmonary infiltrates -started on ceftriaxone IV today -will monitor oxygen saturation to assess pulmonary status HTN - increased Imdur to 60 mg daily. His blood pressure still required more titration. Norvasc added. He will follow with the primary care physician in 1 week. Will follow with Dr. Guerrero for the possibility of treadmill stress test in 2 weeks. Resuscitation Status: 09/23/20 15:54 Resuscitation Status Routine Resuscitation Status: FULL: Full Resuscitation Discussed with: Patient - Labs Lab Results: 09/26/20 04:17 09/24/20 04:10 Abnormal Lab Results - Last 48 hrs 09/26/20 04:17: RBC 4.08 L, Hgb 13.3 L, Hct 39.3 L, MCH 32.6 H, MPV 7.3 L, Monocytes % 11.8 H, Monocytes # 0.7 H Microbiology - Entire Visit 09/24/20 18:10 Nasal swab Influenza Types A,B Direct EIA - Final - Physical Exam Vitals: Vital Signs (12 hours) Temp Pulse Resp BP BP Pulse Ox 09/26/20 11:06 97.5 F L 63 16 147/85 H 95 09/26/20 07:20 97.7 F 50 L 15 156/85 H 92 L 09/26/20 04:07 98.5 F 65 148/89 H 95 Weight Weight 211 lb 6.4 oz Physical Exam: The patient was seen and examined on the day of discharge. Him on blood pressure monitoring and the follow with the primary care. He had overnight some headache. He is still hypoxia with around 92%. But clinically he looks good he has no shortness of breath or dyspnea on exertion or productive cough. he is afebrile and no elevated white count. Plan - Discharge Medications Prescriptions: Isosorbide Mononitrate [Imdur ER] 60 mg PO DAILY 30 Days #40 tab Amlodipine [Norvasc] 5 mg PO BID 30 Days #60 tab Doxycycline [Vibramycin] 100 mg PO Q12HR 7 Days #14 cap Home Medications: Medication Instructions Recorded Confirmed Type Dutasteride [Avodart] 0.5 mg PO DAILY 10/19/14 09/23/20 History Tamsulosin HCl 0.4 mg PO HS 10/19/14 09/23/20 History Aspirin [Adult Low Dose Aspirin EC] 81 mg PO HS 10/23/14 09/23/20 History Atorvastatin Calcium 80 mg PO HS 05/29/19 09/23/20 History Cholecalciferol (Vitamin D3) 2,000 unit PO HS 05/29/19 09/23/20 History [Vitamin D3] Levothyroxine Sodium [Synthroid] 75 mcg PO DAILY 05/29/19 09/23/20 History Vitamin B Complex [B Complex] 1 tablet PO DAILY 09/23/20 09/23/20 History Amlodipine [Norvasc] 5 mg PO BID 30 Days #60 tab 09/26/20 Rx Doxycycline [Vibramycin] 100 mg PO Q12HR 7 Days #14 cap 09/26/20 Rx Isosorbide Mononitrate [Imdur ER] 60 mg PO DAILY 30 Days #40 tab 09/26/20 Rx Allergies: No Known Allergies Allergy (Verified 09/23/20 18:32) - Discharge Instructions Discharge Instructions:: Please check your blood pressure on a daily basis next few days until you can see your primary care doctor take the blood pressure log with you. Follow with the primary care physician in [address] Guerrero in his clinic in 1 to 2 weeks. Activity:: Activity as Tolerated Nourishment:: Regular Diet - Follow up Plan Referrals: Osmani Mendoza DO [Primary Care Provider] - Manjinder Guerrero MD [Active] - 10/11/20 8:30 am (You have an appointment for your treadmill stress test. You will see Dr. Guerrero afterwards.) Disposition: HOME Quality - Care Measures CORE MEASURES:: N/A
== END 2020-09-26 14:00 | disposition home or self-care (01) | DRG 179 ==
LOC: ERS 13:25 → 2NO 14:33 → OBSVTOIN 09-25 14:20
PROVIDERS: ADMIT Emergency Medicine; ATTEND Internal Medicine
DX: J69.0 Pneumonitis due to inhalation of food and vomit (principal); R07.89 Other chest pain; I25.10 Atherosclerotic heart disease of native coronary artery without angina pectoris; N40.0 Benign prostatic hyperplasia without lower urinary tract symptoms; E03.9 Hypothyroidism, unspecified; I10 Essential (primary) hypertension; H10.10 Acute atopic conjunctivitis, unspecified eye; E78.00 Pure hypercholesterolemia, unspecified; Z87.891 Personal history of nicotine dependence; Z79.899 Other long term (current) drug therapy; Z98.42 Cataract extraction status, left eye; Z98.41 Cataract extraction status, right eye; Z98.890 Other specified postprocedural states; Z79.890 Hormone replacement therapy; Z20.828 Contact with and (suspected) exposure to other viral communicable diseases; Z90.5 Acquired absence of kidney
CPT/HCPCS: 36415; 71045; 78452; 80048; 80061; 85025; 87804; 93017; 93306; 94760; 96372; 96374; 96375; 96376; 99285; A9500; G0378; J0696; J1650; J2785; J3490; U0002

== ENCOUNTER 2023-09-22 13:47 | Outpatient (CLI) | payer MEDICARE ==
[~2023-09-22 13:47] MED LIST: Iopamidol 370 76% 100 ML VIAL ONE
== END 2023-09-22 13:48 | disposition home or self-care (01) ==
LOC: CT 13:47
PROVIDERS: ATTEND Internal Medicine Cardiovascular Disease
DX: R06.02 Shortness of breath (principal); I77.810 Thoracic aortic ectasia; J43.2 Centrilobular emphysema; I77.89 Other specified disorders of arteries and arterioles
CPT/HCPCS: 71275; 82565